=== PATIENT | female | born 1955 | race Caucasian/White ===

== ENCOUNTER 2018-08-19 07:00 | Inpatient (IN) ==
[2018-08-19 10:33] LABS: Basophils % 0.5 % (0.0-0.8); Eosinophils # 0.4 10*3/uL (0.0-0.87); Eosinophils % 5.6 % (0.00-10.9); Hematocrit 39.6 VOL% (35.7-47.0); Hemoglobin 12.4 GM/DL (12.0-16.0); Immature Granulocytes % 0.5 %; Immature Granulocytes Absolute 0.04 #; Lymphocytes # 1.7 10*3/uL (1.4-4.0); Lymphocytes % 22.7 % (21.3-54.2); Mean Corpuscular HGB Conc 31.3 GM/DL (32-36); Mean Corpuscular Volume 83.9 FL (87-102); Mean Platelet Volume 10.6 FL (9.6-12.0); Monocytes % 9.5 % (1.7-12.7); Neutrophils % 61.2 % (38.7-73.9); Platelet Count 255 T/CUMM (130-400); Red Blood Count 4.72 MC/CUMM (3.8-5.5); Red Cell Distribution Width 15.1 % (9.3-17.3); White Blood Count 7.3 T/CUMM (4-12)
[2018-08-19 11:29] LABS: Albumin 3.1 G/DL (3.4-5.0); Bilirubin,Total 0.4 MG/DL (0.2-1.0); Calcium 8.9 MG/DL (8.5-10.1); Osmolality,Calculated 288.4 MOS/KG (273-304); Total Protein 7.1 G/DL (6.4-8.3)
[2018-08-19] MEDS: ONDANSETRON 4 MG/2 ML VIAL IV PRN ×2 (17:53→22:38)
[2018-08-19] MEDS ORDERED: ZALEPLON 5 MG CAPSULE PO PRN (21:46)
[2018-08-19] MEDS: CHLORHEXIDINE 0.12% ORAL RINSE 60 ML BOTTLE SWISH/SPIT SCH (22:39)
[2018-08-20] MEDS: CHLORHEXIDINE 4% SOLN 118 ML BOTTLE TOP SCH ×2 (02:38→08:26)
[2018-08-20] MEDS ORDERED: PAPAVERINE 60 MG/2 ML VIAL ONE (04:20)
[2018-08-20] MEDS ORDERED: TISSUE ADHESIVE 1 EACH APPLICATOR TOP ONE (04:20)
[2018-08-20] MEDS ORDERED: VANCOMYCIN 1,000 MG VIAL ONE (04:21)
[2018-08-20] MEDS ORDERED: DIAZEPAM 5 MG TABLET PO ONE (06:00)
[2018-08-20] MEDS ORDERED: FAMOTIDINE 20 MG TABLET PO ONE (06:00)
[2018-08-20] MEDS ORDERED: FAMOTIDINE 20 MG/2 ML VIAL IV ONE (06:10)
[2018-08-20] MEDS ORDERED: CEFUROXIME INJ 1,500 MG in SYRINGE 1 EACH IV ONE (06:30)
[2018-08-20 07:49] LABS: ABG Base Excess -0.1 MMOL/L (-2.5-2.5); ABG HCO3 24.4 MMOL/L (20-26); ABG PCO2 36.5 MM HG (35-48); ABG PH 7.426 (7.35-7.45); ABG TCO2 21.6 MMOL/L (23-27); Glucose Heart Surgery 275 MG/DL (74-106); Hematocrit Heart Surgery 32.6 PERCENT (37-47); Hemoglobin Heart Surgery 10.5 G/DL (12.0-16.0); Ionized Calcium Arterial 1.16 MMOL/L (1.21-1.46); PCO2 Patient Temp Arterial 36.5 MMHG; PH Patient Temp Arterial 7.426; Patient Temperature 37 CELCIUS; Potassium Heart/CVR 3.8 MMOL/L (3.5-5.1); Sodium Heart/CVR 137 MMOL/L (135-145)
[2018-08-20] MEDS ORDERED: NITROPRUSSIDE 50 MG/2 ML VIAL ONE ×2 (07:50→11:44)
[2018-08-20] MEDS ORDERED: PHENYLEPHRINE DRIP 40 MG/250 ML PREMIX IV ONE (07:51)
[2018-08-20] MEDS ORDERED: ATROPINE 1 MG/10 ML SYRINGE ONE (07:51)
[2018-08-20 07:54] LABS: Apearance,Urine CLEAR (Clear); Bacteria,Urine Occasional /HPF (Few); Bilirubin,Urine Negative (Negative); Blood, Urine Negative (Negative); Glucose,Urine (UA) 50 mg/dL (Negative); Ketones,Urine Negative (Negative); Mucus,Urine Occasional /LPF (Occasional); Nitrite,Urine Negative (Negative); Protein,Urine 100 MG/DL; RBC,Urine <1 /HPF (0-4); Urine Color Straw (Yellow); Urine Specific Gravity 1.009 (1.001-1.035); Urine Urobilinogen < 2.0 EU/DL (0.2-1.0)
[2018-08-20] MEDS ORDERED: EPINEPHrine 1 MG/10 ML SYRINGE ONE ×2 (08:05→08:34)
[2018-08-20] MEDS: CHLORHEXIDINE 0.12% ORAL RINSE 60 ML BOTTLE SWISH/SPIT SCH ×2 (08:26→20:32)
[2018-08-20] MEDS: SODIUM CHLORIDE 0.9% 1,000 ML IV SCH ×2 (08:26→09:04)
[2018-08-20] MEDS ORDERED: POTASSIUM CHLORIDE RIDER 100 ML IV ONE (09:06)
[2018-08-20 09:07] LABS: Hematocrit Heart Surgery 22.5 PERCENT (37-47); Hemoglobin Heart Surgery 7.2 G/DL (12.0-16.0); PCO2 Patient Temp Venous 33.1 MM HG; PH Patient Temp Venous 7.465; PO2 Patient Temp Venous 36.3 MM HG; Potassium Heart/CVR 4.5 MMOL/L (3.5-5.1); VBG Base Excess 0.4 MEQ/L (0-4); VBG HCO3 24.6 MEQ/L (24-28); VBG Oxygen Saturation 78.6 %; VBG PCO2 36.5 MMHG (41-51); VBG PH 7.435; VBG PO2 41.8 MMHG (17-40)
[2018-08-20] MEDS ORDERED: INSULIN REGULAR 100 UNIT/ML ONE (09:13)
[2018-08-20 09:39] LABS: Hematocrit Heart Surgery 22.9 PERCENT (37-47); Hemoglobin Heart Surgery 7.3 G/DL (12.0-16.0); PCO2 Patient Temp Venous 27.7 MM HG; PH Patient Temp Venous 7.495; PO2 Patient Temp Venous 32.5 MM HG; Potassium Heart/CVR 3.4 MMOL/L (3.5-5.1); VBG Base Excess -1.3 MEQ/L (0-4); VBG HCO3 23.1 MEQ/L (24-28); VBG Oxygen Saturation 80.2 %; VBG PCO2 33.6 MMHG (41-51); VBG PH 7.435; VBG PO2 42.8 MMHG (17-40)
[2018-08-20 10:12] LABS: Hemoglobin Heart Surgery 8.5 G/DL (12.0-16.0); PCO2 Patient Temp Venous 38.4 MM HG; PH Patient Temp Venous 7.375; PO2 Patient Temp Venous 43.2 MM HG; Potassium Heart/CVR 4.4 MMOL/L (3.5-5.1); VBG Base Excess -2.9 MEQ/L (0-4); VBG Oxygen Saturation 74.5 %; VBG PCO2 38.4 MMHG (41-51); VBG PH 7.375; VBG PO2 43.2 MMHG (17-40)
[2018-08-20] MEDS ORDERED: MANNITOL 100 GM/500 ML BAG IV ONE (10:45)
[2018-08-20] MEDS ORDERED: HEPARIN 10,000 UNIT/10 ML VIAL ONE (10:46)
[2018-08-20] MEDS ORDERED: MAGNESIUM SULFATE 5 GM/10 ML VIAL IV ONE (10:46)
[2018-08-20] MEDS ORDERED: FUROSEMIDE 20 MG/2 ML VIAL ONE (10:46)
[2018-08-20] MEDS ORDERED: PROTAMINE SULFATE 250 MG/25 ML VIAL IV ONE (10:46)
[2018-08-20] MEDS ORDERED: SODIUM BICARBONATE 50 MEQ/50 ML VIAL IV ONE (10:46)
[2018-08-20] MEDS ORDERED: ALBUMIN 25% 25 GM/100 ML VIAL IV ONE (10:46)
[2018-08-20] MEDS ORDERED: ALBUMIN 5% 12.5 GM/250 ML VIAL IV ONE ×2 (10:46→10:50)
[2018-08-20] MEDS ORDERED: DEXTROSE 5% KCL 20 MEQ 20 MEQ/1,000 ML BAG IV ONE (10:46)
[2018-08-20] MEDS ORDERED: PROTAMINE SULFATE 50 MG/5 ML VIAL IV ONE (10:47)
[2018-08-20] MEDS ORDERED: POTASSIUM CHLORIDE 20 MEQ/10 ML VIAL ONE (10:47)
[2018-08-20 10:48] LABS: ABG Base Excess -7.5 MMOL/L (-2.5-2.5); ABG HCO3 18.2 MMOL/L (20-26); ABG PCO2 29.5 MM HG (35-48); ABG TCO2 16.4 MMOL/L (23-27); Glucose Heart Surgery 187 MG/DL (74-106); Hematocrit Heart Surgery 18.7 PERCENT (37-47); Ionized Calcium Arterial 0.94 MMOL/L (1.21-1.46); PCO2 Patient Temp Arterial 29.5 MMHG; Patient Temperature 37 CELCIUS; Potassium Heart/CVR 3.8 MMOL/L (3.5-5.1); Sodium Heart/CVR 136 MMOL/L (135-145)
[2018-08-20 10:51] LABS: Hemoglobin Heart Surgery 5.9 G/DL (12.0-16.0)
[2018-08-20 10:59] LABS: ABG Base Excess -3.8 MMOL/L (-2.5-2.5); ABG HCO3 21.2 MMOL/L (20-26); ABG PCO2 37.8 MM HG (35-48); ABG PH 7.358 (7.35-7.45); Glucose Heart Surgery 229 MG/DL (74-106); Hematocrit Heart Surgery 23.8 PERCENT (37-47); Hemoglobin Heart Surgery 7.6 G/DL (12.0-16.0); Ionized Calcium Arterial 1.18 MMOL/L (1.21-1.46); PCO2 Patient Temp Arterial 37.8 MMHG; PH Patient Temp Arterial 7.358; Patient Temperature 37 CELCIUS; Potassium Heart/CVR 3.8 MMOL/L (3.5-5.1); Sodium Heart/CVR 137 MMOL/L (135-145)
[2018-08-20] MEDS ORDERED: SUFentanil 50 MCG/ML AMP ONE (11:23)
[2018-08-20] MEDS ORDERED: MIDAZOLAM 2 MG/2 ML VIAL ONE (11:23)
[2018-08-20] MEDS: SODIUM CHLORIDE 0.45% 1,000 ML IV SCH ×2 (11:34)
[2018-08-20] MEDS ORDERED: CALCIUM CHLORIDE 1,000 MG/10 ML SYRINGE IV PRN (11:36)
[2018-08-20] MEDS ORDERED: SODIUM CHLORIDE 0.9% 250 ML IV PRN (11:36)
[2018-08-20] MEDS ORDERED: CHLORHEXIDINE 4% SOLN 118 ML BOTTLE TOP PRN (11:36)
[2018-08-20] MEDS ORDERED: MAGNESIUM SULF RIDER 4 GM in PREMIX 1 EACH IV PRN (11:36)
[2018-08-20] MEDS ORDERED: ACETAMINOPHEN 650 MG SUPP RECTAL PRN (11:36)
[2018-08-20] MEDS ORDERED: MIDAZOLAM 2 MG/2 ML VIAL IV PRN (11:36)
[2018-08-20] MEDS ORDERED: DEXTROSE 50% 25 GM/50 ML SYRINGE IV PRN ×2 (11:36)
[2018-08-20] MEDS ORDERED: MORPHINE 10 MG/1 ML VIAL IV PRN (11:36)
[2018-08-20] MEDS: NITROPRUSSIDE 100 MG in DEXTROSE 5% 246 ML IV PRN (11:38)
[2018-08-20] MEDS ORDERED: INSULIN REGULAR DRIP 100 ML IV SCH (12:00)
[2018-08-20] MEDS ORDERED: NITROGLYCERIN DRIP 50 MG/250 ML BOTTLE IV ONE ×2 (12:01→12:36)
[2018-08-20 12:31] LABS: Basophils % 0.4 % (0.0-0.8); Eosinophils # 0.1 10*3/uL (0.0-0.87); Eosinophils % 1.3 % (0.00-10.9); Hematocrit 35.3 VOL% (35.7-47.0); Hemoglobin 11.4 GM/DL (12.0-16.0); Immature Granulocytes % 0.7 %; Immature Granulocytes Absolute 0.07 #; Lymphocytes # 1.2 10*3/uL (1.4-4.0); Lymphocytes % 11.7 % (21.3-54.2); Mean Corpuscular HGB Conc 32.3 GM/DL (32-36); Mean Corpuscular Volume 83.5 FL (87-102); Mean Platelet Volume 10.8 FL (9.6-12.0); Monocytes % 8.3 % (1.7-12.7); Neutrophils % 77.6 % (38.7-73.9); Platelet Count 175 T/CUMM (130-400); Red Blood Count 4.23 MC/CUMM (3.8-5.5); Red Cell Distribution Width 14.4 % (9.3-17.3); White Blood Count 10.1 T/CUMM (4-12)
[2018-08-20 12:34] LABS: ABG Base Excess -3.8 MMOL/L (-2.5-2.5); ABG Oxygen Saturation 98.6 % (95-100); ABG PCO2 28.2 MM HG (35-48); ABG PH 7.447 (7.35-7.45); ABG PO2 156.7 MM HG (80-95); ABG TCO2 19.9 MMOL/L (23-27); Glucose Heart Surgery 211 MG/DL (74-106); Hemoglobin Heart Surgery 12.1 G/DL (12.0-16.0); Potassium Heart/CVR 3.8 MMOL/L (3.5-5.1)
[2018-08-20] MEDS ORDERED: MIDAZOLAM 10 MG/2 ML VIAL ONE (12:35)
[2018-08-20] MEDS ORDERED: SUFentanil 250 MCG/5 ML AMP ONE (12:35)
[2018-08-20] MEDS ORDERED: CALCIUM CHLORIDE 1,000 MG/10 ML VIAL IV ONE (12:35)
[2018-08-20] MEDS ORDERED: HEPARIN/NACL 0.9% 2 UNITS/ML 500 ML IV ONE (12:35)
[2018-08-20] MEDS ORDERED: SEVOFLURANE 1 UNIT/15 MINUTE INH ONE (12:35)
[2018-08-20] MEDS ORDERED: PHENYLEPHRINE DRIP 20 MG/250 ML PREMIX IV ONE (12:35)
[2018-08-20] MEDS ORDERED: LACTATED RINGERS 1,000 ML IV ONE (12:36)
[2018-08-20] MEDS ORDERED: AMINOCAPROIC ACID 5,000 MG/20 ML VIAL ONE (12:36)
[2018-08-20] MEDS ORDERED: ETOMIDATE 40 MG/20 ML VIAL IV ONE (12:36)
[2018-08-20] MEDS ORDERED: VECURONIUM 10 MG VIAL IV ONE (12:36)
[2018-08-20] MEDS ORDERED: SODIUM CHLORIDE 0.9% 2,000 ML IV ONE (12:36)
[2018-08-20] MEDS ORDERED: SODIUM CHLORIDE 0.9% 250 ML IV ONE (12:36)
[2018-08-20 12:39] LABS: PT Patient Result 10.8 SECS; Partial Thromboplastin Time 28.1 SECS (0-40)
[2018-08-20 12:46] LABS: Blood Urea Nitrogen 18 MG/DL (7-18); Calcium 8.3 MG/DL (8.5-10.1); Glucose 225 MG/DL (74-106); Osmolality,Calculated 287.4 MOS/KG (273-304)
[2018-08-20] MEDS ORDERED: ASPIRIN 325 MG TABLET NG ONE (12:51)
[2018-08-20] MEDS: ALBUMIN 5% 12.5 GM in PREMIX 1 EACH IV PRN ×4 (12:51→16:39)
[2018-08-20] MEDS: POTASSIUM CHLORIDE RIDER 20 MEQ in PREMIX 1 EACH IV PRN ×2 (13:21→20:39)
[2018-08-20] MEDS ORDERED: LACTATED RINGERS 500 ML IV ONE ×2 (13:39→18:48)
[2018-08-20] MEDS: POTASSIUM CHLORIDE RIDER 10 MEQ in PREMIX 1 EACH IV PRN ×2 (13:59→20:09)
[2018-08-20] MEDS: MAGNESIUM SULF RIDER 2 GM in PREMIX 1 EACH IV PRN (15:27)
[2018-08-20] MEDS ORDERED: LACTATED RINGERS 250 ML IV ONE (16:23)
[2018-08-20] MEDS: INSULIN REGULAR 100 UNIT/ML IV PRN (17:04)
[2018-08-20] MEDS: CEFUROXIME INJ 1,500 MG in SYRINGE 1 EACH IV SCH (18:51)
[2018-08-20 18:57] LABS: ABG Base Excess -1.2 MMOL/L (-2.5-2.5); ABG HCO3 23.5 MMOL/L (20-26); ABG Oxygen Saturation 99.6 % (95-100); ABG PCO2 34.4 MM HG (35-48); ABG PH 7.427 (7.35-7.45); ABG TCO2 20.4 MMOL/L (23-27); Glucose Heart Surgery 144 MG/DL (74-106); Hematocrit Heart Surgery 32.3 PERCENT (37-47); Hemoglobin Heart Surgery 10.4 G/DL (12.0-16.0); Potassium Heart/CVR 3.6 MMOL/L (3.5-5.1)
[2018-08-20] MEDS: MORPHINE 4 MG/1 ML VIAL IV PRN (19:12)
[2018-08-21] MEDS: ONDANSETRON 4 MG/2 ML VIAL IV PRN (03:20)
[2018-08-21] MEDS: MORPHINE 4 MG/1 ML VIAL IV PRN ×5 (03:27→16:23)
[2018-08-21] MEDS: SODIUM CHLORIDE 0.45% 1,000 ML IV SCH ×2 (03:39→08:14)
[2018-08-21 04:23] LABS: Basophils % 0.3 % (0.0-0.8); Hematocrit 31.1 VOL% (35.7-47.0); Immature Granulocytes % 0.6 %; Immature Granulocytes Absolute 0.09 #; Lymphocytes # 1.1 10*3/uL (1.4-4.0); Lymphocytes % 6.6 % (21.3-54.2); Mean Corpuscular HGB Conc 32.2 GM/DL (32-36); Mean Corpuscular Volume 84.1 FL (87-102); Mean Platelet Volume 11.1 FL (9.6-12.0); Monocytes % 8.3 % (1.7-12.7); Neutrophils % 84.2 % (38.7-73.9); Platelet Count 186 T/CUMM (130-400)
[2018-08-21 04:33] LABS: Calcium 8.4 MG/DL (8.5-10.1); Osmolality,Calculated 281.7 MOS/KG (273-304)
[2018-08-21 05:03] LABS: ABG Base Excess -3.2 MMOL/L (-2.5-2.5); ABG HCO3 21.8 MMOL/L (20-26); ABG Oxygen Saturation 99.3 % (95-100); ABG PH 7.381 (7.35-7.45); ABG TCO2 19.3 MMOL/L (23-27); Glucose Heart Surgery 198 MG/DL (74-106); Hematocrit Heart Surgery 32.9 PERCENT (37-47); Hemoglobin Heart Surgery 10.6 G/DL (12.0-16.0); Potassium Heart/CVR 4.2 MMOL/L (3.5-5.1)
[2018-08-21] MEDS: INSULIN REGULAR 100 UNIT/ML IV PRN (05:06)
[2018-08-21] MEDS: CEFUROXIME INJ 1,500 MG in SYRINGE 1 EACH IV SCH ×2 (06:37→18:40)
[2018-08-21] MEDS: PROMETHAZINE 25 MG/1 ML VIAL IM PRN (06:50)
[2018-08-21] MEDS: MAGNESIUM SULF RIDER 2 GM in PREMIX 1 EACH IV PRN (07:08)
[2018-08-21] MEDS: CHLORHEXIDINE 0.12% ORAL RINSE 60 ML BOTTLE SWISH/SPIT SCH ×2 (08:06→20:17)
[2018-08-21] MEDS: PANTOPRAZOLE 40 MG VIAL IV SCH (08:06)
[2018-08-21] MEDS ORDERED: FUROSEMIDE 40 MG/4 ML VIAL IV ONE (09:29)
[2018-08-21] MEDS: INSULIN REGULAR 100 UNIT/ML SUBCUT SCH ×5 (09:53→23:51)
[2018-08-21] MEDS: CLOPIDOGREL 75 MG TABLET PO SCH (09:56)
[2018-08-21] MEDS ORDERED: INSULIN REGULAR 100 UNIT/ML SUBCUT SCH (10:00)
[2018-08-21] MEDS: ATORVASTATIN 40 MG TABLET PO SCH ×2 (11:22→20:17)
[2018-08-21] MEDS: FUROSEMIDE 40 MG TABLET PO SCH (11:25)
[2018-08-21] MEDS: CARVEDILOL 3.125 MG TABLET PO SCH ×2 (11:25→16:23)
[2018-08-21] MEDS: ASPIRIN EC 325 MG TABLET PO SCH (11:25)
[2018-08-21] MEDS ORDERED: NITROPRUSSIDE 50 MG/2 ML VIAL ONE (12:18)
[2018-08-21] MEDS: NITROPRUSSIDE 100 MG in DEXTROSE 5% 246 ML IV PRN (12:23)
[2018-08-21] MEDS: GABAPENTIN 600 MG TABLET PO SCH ×2 (16:23→20:17)
[2018-08-21] MEDS ORDERED: KETOROLAC 15 MG/1 ML VIAL IV ONE (17:27)
[2018-08-21] MEDS ORDERED: HEPARIN/NACL 0.9% 2 UNITS/ML 500 ML IV ONE (21:23)
[2018-08-22] MEDS: INSULIN REGULAR 100 UNIT/ML SUBCUT SCH ×6 (04:06→23:30)
[2018-08-22] MEDS: MORPHINE 4 MG/1 ML VIAL IV PRN (04:14)
[2018-08-22 04:24] LABS: Basophils % 0.3 % (0.0-0.8); Eosinophils # 0.1 10*3/uL (0.0-0.87); Eosinophils % 0.5 % (0.00-10.9); Hematocrit 32.3 VOL% (35.7-47.0); Hemoglobin 10.2 GM/DL (12.0-16.0); Immature Granulocytes % 0.5 %; Immature Granulocytes Absolute 0.05 #; Lymphocytes # 2.4 10*3/uL (1.4-4.0); Lymphocytes % 22.6 % (21.3-54.2); Mean Corpuscular HGB Conc 31.6 GM/DL (32-36); Mean Corpuscular Volume 85.9 FL (87-102); Mean Platelet Volume 11.2 FL (9.6-12.0); Monocytes % 10.3 % (1.7-12.7); Neutrophils % 65.8 % (38.7-73.9); Platelet Count 186 T/CUMM (130-400); Red Blood Count 3.76 MC/CUMM (3.8-5.5); Red Cell Distribution Width 15.5 % (9.3-17.3); White Blood Count 10.6 T/CUMM (4-12)
[2018-08-22 04:41] LABS: Calcium 8.3 MG/DL (8.5-10.1); Osmolality,Calculated 283.4 MOS/KG (273-304)
[2018-08-22 04:44] LABS: Risk Ratio 3.78
[2018-08-22] MEDS: POTASSIUM CHLORIDE RIDER 20 MEQ in PREMIX 1 EACH IV PRN (06:12)
[2018-08-22] MEDS: MAGNESIUM SULF RIDER 2 GM in PREMIX 1 EACH IV PRN (06:12)
[2018-08-22] MEDS: POTASSIUM CHLORIDE RIDER 10 MEQ in PREMIX 1 EACH IV PRN (07:21)
[2018-08-22] MEDS: CLOPIDOGREL 75 MG TABLET PO SCH (08:55)
[2018-08-22] MEDS: LOSARTAN 25 MG TABLET PO SCH (08:55)
[2018-08-22] MEDS: CARVEDILOL 3.125 MG TABLET PO SCH ×2 (08:55→16:55)
[2018-08-22] MEDS: FUROSEMIDE 40 MG TABLET PO SCH (08:56)
[2018-08-22] MEDS: CHLORHEXIDINE 0.12% ORAL RINSE 60 ML BOTTLE SWISH/SPIT SCH ×2 (08:56→20:05)
[2018-08-22] MEDS: GABAPENTIN 600 MG TABLET PO SCH (08:56)
[2018-08-22] MEDS: ASPIRIN EC 325 MG TABLET PO SCH (08:56)
[2018-08-22] MEDS: PANTOPRAZOLE 40 MG VIAL IV SCH (08:56)
[2018-08-22] MEDS: ATORVASTATIN 40 MG TABLET PO SCH (20:04)
[2018-08-23] MEDS: INSULIN REGULAR 100 UNIT/ML SUBCUT SCH ×5 (03:36→20:37)
[2018-08-23 04:30] LABS: Basophils % 0.3 % (0.0-0.8); Eosinophils # 0.3 10*3/uL (0.0-0.87); Eosinophils % 2.7 % (0.00-10.9); Hematocrit 29.9 VOL% (35.7-47.0); Hemoglobin 9.4 GM/DL (12.0-16.0); Immature Granulocytes % 0.4 %; Immature Granulocytes Absolute 0.05 #; Lymphocytes # 2.2 10*3/uL (1.4-4.0); Lymphocytes % 19.8 % (21.3-54.2); Mean Corpuscular HGB Conc 31.4 GM/DL (32-36); Mean Corpuscular Volume 86.4 FL (87-102); Mean Platelet Volume 11.5 FL (9.6-12.0); Monocytes % 15.4 % (1.7-12.7); Neutrophils % 61.4 % (38.7-73.9); Platelet Count 175 T/CUMM (130-400); Red Blood Count 3.46 MC/CUMM (3.8-5.5); Red Cell Distribution Width 15.4 % (9.3-17.3); White Blood Count 11.2 T/CUMM (4-12)
[2018-08-23 04:48] LABS: Calcium 8.2 MG/DL (8.5-10.1); Osmolality,Calculated 285.4 MOS/KG (273-304)
[2018-08-23] MEDS: MAGNESIUM SULF RIDER 2 GM in PREMIX 1 EACH IV PRN (05:50)
[2018-08-23] MEDS: POTASSIUM CHLORIDE RIDER 20 MEQ in PREMIX 1 EACH IV PRN (05:50)
[2018-08-23] MEDS: POTASSIUM CHLORIDE RIDER 10 MEQ in PREMIX 1 EACH IV PRN (06:54)
[2018-08-23] MEDS: CLOPIDOGREL 75 MG TABLET PO SCH (08:37)
[2018-08-23] MEDS: LOSARTAN 25 MG TABLET PO SCH (08:37)
[2018-08-23] MEDS: CARVEDILOL 3.125 MG TABLET PO SCH ×2 (08:38→17:43)
[2018-08-23] MEDS: PANTOPRAZOLE 40 MG VIAL IV SCH (08:38)
[2018-08-23] MEDS: ASPIRIN EC 325 MG TABLET PO SCH (08:38)
[2018-08-23] MEDS: FUROSEMIDE 40 MG TABLET PO SCH (08:38)
[2018-08-23] MEDS: CHLORHEXIDINE 0.12% ORAL RINSE 60 ML BOTTLE SWISH/SPIT SCH ×2 (08:39→20:38)
[2018-08-23] MEDS ORDERED: GABAPENTIN 100 MG CAPSULE PO SCH (09:00)
[2018-08-23] MEDS: ATORVASTATIN 40 MG TABLET PO SCH (20:37)
[2018-08-24] MEDS: INSULIN REGULAR 100 UNIT/ML SUBCUT SCH ×6 (01:58→21:13)
[2018-08-24 05:28] LABS: Basophils % 0.4 % (0.0-0.8); Eosinophils # 0.5 10*3/uL (0.0-0.87); Eosinophils % 4.5 % (0.00-10.9); Hematocrit 30.3 VOL% (35.7-47.0); Hemoglobin 9.6 GM/DL (12.0-16.0); Immature Granulocytes % 0.6 %; Immature Granulocytes Absolute 0.07 #; Lymphocytes # 2.6 10*3/uL (1.4-4.0); Lymphocytes % 23.6 % (21.3-54.2); Mean Corpuscular HGB Conc 31.7 GM/DL (32-36); Mean Corpuscular Volume 85.4 FL (87-102); Mean Platelet Volume 11.2 FL (9.6-12.0); Monocytes % 15.9 % (1.7-12.7); Platelet Count 205 T/CUMM (130-400); Red Blood Count 3.55 MC/CUMM (3.8-5.5); Red Cell Distribution Width 14.6 % (9.3-17.3); White Blood Count 10.9 T/CUMM (4-12)
[2018-08-24 05:57] LABS: Calcium 8.5 MG/DL (8.5-10.1); Osmolality,Calculated 284.3 MOS/KG (273-304)
[2018-08-24 06:05] LABS: Anisocytosis 1+; Eosinophils 1 % (0-10); Hypochromasia 1+; Lymphocytes 22 % (20-55); Platelet Estimate Adequate; Segmented Neutrophils 57 % (50-85); Total Cells Counted 100
[2018-08-24] MEDS: PANTOPRAZOLE 40 MG VIAL IV SCH (08:57)
[2018-08-24] MEDS: POTASSIUM CHLORIDE RIDER 10 MEQ in PREMIX 1 EACH IV PRN ×3 (09:00→12:08)
[2018-08-24] MEDS: ASPIRIN EC 325 MG TABLET PO SCH (09:01)
[2018-08-24] MEDS: LOSARTAN 25 MG TABLET PO SCH (09:01)
[2018-08-24] MEDS: FUROSEMIDE 40 MG TABLET PO SCH (09:01)
[2018-08-24] MEDS: CLOPIDOGREL 75 MG TABLET PO SCH (09:01)
[2018-08-24] MEDS: CARVEDILOL 6.25 MG TABLET PO SCH ×2 (09:01→21:11)
[2018-08-24] MEDS: CHLORHEXIDINE 0.12% ORAL RINSE 60 ML BOTTLE SWISH/SPIT SCH ×2 (09:02→21:12)
[2018-08-24] MEDS: MORPHINE 4 MG/1 ML VIAL IV PRN ×3 (12:52→23:26)
[2018-08-24] MEDS: ONDANSETRON 4 MG/2 ML VIAL IV PRN ×2 (12:52)
[2018-08-24] MEDS: POLYETHYLENE GLYCOL POWDER 17 GM PACK PO PRN (12:54)
[2018-08-24] MEDS: ATORVASTATIN 40 MG TABLET PO SCH (21:11)
[2018-08-25] MEDS: INSULIN REGULAR 100 UNIT/ML SUBCUT SCH ×6 (02:00→20:42)
[2018-08-25] MEDS: MORPHINE 4 MG/1 ML VIAL IV PRN (05:37)
[2018-08-25 05:58] LABS: Basophils # 0.1 10*3/uL (0.0-0.2); Basophils % 0.5 % (0.0-0.8); Eosinophils # 0.5 10*3/uL (0.0-0.87); Hematocrit 31.1 VOL% (35.7-47.0); Hemoglobin 9.9 GM/DL (12.0-16.0); Immature Granulocytes % 0.8 %; Immature Granulocytes Absolute 0.08 #; Lymphocytes # 2.9 10*3/uL (1.4-4.0); Lymphocytes % 27.7 % (21.3-54.2); Mean Corpuscular HGB Conc 31.8 GM/DL (32-36); Mean Corpuscular Volume 85.2 FL (87-102); Mean Platelet Volume 10.5 FL (9.6-12.0); Monocytes % 13.6 % (1.7-12.7); Neutrophils % 52.4 % (38.7-73.9); Platelet Count 303 T/CUMM (130-400); Red Blood Count 3.65 MC/CUMM (3.8-5.5); Red Cell Distribution Width 14.4 % (9.3-17.3); White Blood Count 10.6 T/CUMM (4-12)
[2018-08-25 06:14] LABS: Calcium 8.5 MG/DL (8.5-10.1); Osmolality,Calculated 281.7 MOS/KG (273-304)
[2018-08-25] MEDS: ONDANSETRON 4 MG/2 ML VIAL IV PRN ×2 (08:46→17:47)
[2018-08-25] MEDS: LOSARTAN 25 MG TABLET PO SCH ×2 (08:51→20:43)
[2018-08-25] MEDS: FUROSEMIDE 40 MG TABLET PO SCH (08:51)
[2018-08-25] MEDS: CLOPIDOGREL 75 MG TABLET PO SCH (08:51)
[2018-08-25] MEDS: ASPIRIN EC 325 MG TABLET PO SCH (08:51)
[2018-08-25] MEDS: CARVEDILOL 6.25 MG TABLET PO SCH ×2 (08:51→20:43)
[2018-08-25] MEDS: CHLORHEXIDINE 0.12% ORAL RINSE 60 ML BOTTLE SWISH/SPIT SCH ×2 (08:52→20:43)
[2018-08-25] MEDS: POLYETHYLENE GLYCOL POWDER 17 GM PACK PO PRN (08:53)
[2018-08-25] MEDS: PANTOPRAZOLE 40 MG VIAL IV SCH (08:53)
[2018-08-25] MEDS: PROMETHAZINE 25 MG/1 ML VIAL IM PRN (20:43)
[2018-08-25] MEDS: ATORVASTATIN 40 MG TABLET PO SCH (20:43)
[2018-08-26] MEDS: INSULIN REGULAR 100 UNIT/ML SUBCUT SCH ×4 (08:52→21:56)
[2018-08-26] MEDS: ASPIRIN EC 325 MG TABLET PO SCH (08:52)
[2018-08-26] MEDS: CARVEDILOL 6.25 MG TABLET PO SCH ×2 (08:52→21:28)
[2018-08-26] MEDS: CLOPIDOGREL 75 MG TABLET PO SCH (08:52)
[2018-08-26] MEDS: CHLORHEXIDINE 0.12% ORAL RINSE 60 ML BOTTLE SWISH/SPIT SCH ×2 (08:53→21:29)
[2018-08-26] MEDS: FUROSEMIDE 40 MG TABLET PO SCH (08:53)
[2018-08-26] MEDS: LOSARTAN 50 MG TABLET PO SCH ×2 (08:55→21:28)
[2018-08-26] MEDS: PANTOPRAZOLE 40 MG VIAL IV SCH (08:58)
[2018-08-26] MEDS: ATORVASTATIN 40 MG TABLET PO SCH (21:29)
[2018-08-27] MEDS ORDERED: HYDROmorphone 2 MG/1 ML VIAL IV PRN (04:31)
[2018-08-27] MEDS ORDERED: hydrALAZINE 20 MG/1 ML VIAL IV PRN (04:31)
[2018-08-27] MEDS ORDERED: SODIUM PHOSPHATE ENEMA 133 ML BOTTLE RECTAL PRN (08:07)
[2018-08-27] MEDS: INSULIN REGULAR 100 UNIT/ML SUBCUT SCH ×4 (08:38→20:48)
[2018-08-27] MEDS: CLOPIDOGREL 75 MG TABLET PO SCH (08:39)
[2018-08-27] MEDS: ASPIRIN EC 325 MG TABLET PO SCH (08:39)
[2018-08-27] MEDS: PANTOPRAZOLE 40 MG VIAL IV SCH (08:39)
[2018-08-27] MEDS: LOSARTAN 50 MG TABLET PO SCH ×2 (08:39→20:48)
[2018-08-27] MEDS: CARVEDILOL 12.5 MG TABLET PO SCH ×2 (08:39→20:48)
[2018-08-27] MEDS: FUROSEMIDE 40 MG TABLET PO SCH (08:39)
[2018-08-27] MEDS: POLYETHYLENE GLYCOL POWDER 17 GM PACK PO PRN (08:40)
[2018-08-27] MEDS: LACTULOSE 20 GM/30 ML UDCUP PO PRN ×2 (08:42→14:02)
[2018-08-27] MEDS: CHLORHEXIDINE 0.12% ORAL RINSE 60 ML BOTTLE SWISH/SPIT SCH ×2 (09:15→20:49)
[2018-08-27] MEDS: ONDANSETRON 4 MG/2 ML VIAL IV PRN (20:47)
[2018-08-27] MEDS: INSULIN GLARGINE 100 UNIT/ML SUBCUT SCH (20:47)
[2018-08-27] MEDS: ATORVASTATIN 40 MG TABLET PO SCH (20:48)
[2018-08-28 05:04] LABS: Basophils # 0.1 10*3/uL (0.0-0.2); Basophils % 0.5 % (0.0-0.8); Eosinophils # 0.7 10*3/uL (0.0-0.87); Eosinophils % 6.8 % (0.00-10.9); Hematocrit 29.4 VOL% (35.7-47.0); Hemoglobin 9.3 GM/DL (12.0-16.0); Immature Granulocytes % 0.9 %; Immature Granulocytes Absolute 0.09 #; Lymphocytes # 2.6 10*3/uL (1.4-4.0); Lymphocytes % 25.2 % (21.3-54.2); Mean Corpuscular HGB Conc 31.6 GM/DL (32-36); Mean Platelet Volume 10.4 FL (9.6-12.0); Monocytes % 11.7 % (1.7-12.7); Neutrophils % 54.9 % (38.7-73.9); Platelet Count 391 T/CUMM (130-400); Red Blood Count 3.46 MC/CUMM (3.8-5.5); Red Cell Distribution Width 14.6 % (9.3-17.3); White Blood Count 10.3 T/CUMM (4-12)
[2018-08-28 05:37] LABS: Calcium 8.6 MG/DL (8.5-10.1); Osmolality,Calculated 285.5 MOS/KG (273-304)
[2018-08-28] MEDS: INSULIN REGULAR 100 UNIT/ML SUBCUT SCH ×4 (08:53→21:05)
[2018-08-28] MEDS: LOSARTAN 50 MG TABLET PO SCH ×2 (08:55→21:03)
[2018-08-28] MEDS: FUROSEMIDE 40 MG TABLET PO SCH (08:55)
[2018-08-28] MEDS: CARVEDILOL 12.5 MG TABLET PO SCH ×2 (08:55→21:03)
[2018-08-28] MEDS: CLOPIDOGREL 75 MG TABLET PO SCH (08:55)
[2018-08-28] MEDS: PANTOPRAZOLE 40 MG VIAL IV SCH (08:56)
[2018-08-28] MEDS: ASPIRIN EC 325 MG TABLET PO SCH (08:56)
[2018-08-28] MEDS: CHLORHEXIDINE 0.12% ORAL RINSE 60 ML BOTTLE SWISH/SPIT SCH ×2 (08:56→21:03)
[2018-08-28] MEDS: POLYETHYLENE GLYCOL POWDER 17 GM PACK PO PRN (08:57)
[2018-08-28] MEDS: ATORVASTATIN 40 MG TABLET PO SCH (21:03)
[2018-08-28] MEDS: INSULIN GLARGINE 100 UNIT/ML SUBCUT SCH (21:04)
[2018-08-29] MEDS: ONDANSETRON 4 MG/2 ML VIAL IV PRN (01:42)
[2018-08-29 06:17] LABS: Basophils # 0.1 10*3/uL (0.0-0.2); Basophils % 0.5 % (0.0-0.8); Eosinophils # 0.7 10*3/uL (0.0-0.87); Eosinophils % 5.9 % (0.00-10.9); Hematocrit 29.8 VOL% (35.7-47.0); Hemoglobin 9.3 GM/DL (12.0-16.0); Immature Granulocytes % 0.7 %; Immature Granulocytes Absolute 0.08 #; Lymphocytes # 2.6 10*3/uL (1.4-4.0); Lymphocytes % 23.8 % (21.3-54.2); Mean Corpuscular HGB Conc 31.2 GM/DL (32-36); Mean Corpuscular Volume 84.9 FL (87-102); Mean Platelet Volume 10.4 FL (9.6-12.0); Monocytes % 13.2 % (1.7-12.7); Neutrophils % 55.9 % (38.7-73.9); Platelet Count 437 T/CUMM (130-400); Red Blood Count 3.51 MC/CUMM (3.8-5.5); Red Cell Distribution Width 14.6 % (9.3-17.3)
[2018-08-29 06:55] LABS: Calcium 8.7 MG/DL (8.5-10.1); Osmolality,Calculated 286.1 MOS/KG (273-304)
[2018-08-29] MEDS: INSULIN REGULAR 100 UNIT/ML SUBCUT SCH ×4 (08:03→20:22)
[2018-08-29] MEDS: CARVEDILOL 12.5 MG TABLET PO SCH ×2 (09:15→20:21)
[2018-08-29] MEDS: ASPIRIN EC 325 MG TABLET PO SCH (09:15)
[2018-08-29] MEDS: FUROSEMIDE 40 MG TABLET PO SCH (09:15)
[2018-08-29] MEDS: PANTOPRAZOLE 40 MG VIAL IV SCH (09:15)
[2018-08-29] MEDS: CHLORHEXIDINE 0.12% ORAL RINSE 60 ML BOTTLE SWISH/SPIT SCH ×2 (09:15→20:20)
[2018-08-29] MEDS: LOSARTAN 50 MG TABLET PO SCH ×2 (09:15→20:21)
[2018-08-29] MEDS: CLOPIDOGREL 75 MG TABLET PO SCH (09:15)
[2018-08-29] MEDS: POTASSIUM CHLORIDE 20 MEQ TABLET PO PRN ×2 (10:05→11:52)
[2018-08-29] MEDS: INSULIN GLARGINE 100 UNIT/ML SUBCUT SCH (20:21)
[2018-08-29] MEDS: ATORVASTATIN 40 MG TABLET PO SCH (20:21)
[2018-08-30 04:42] LABS: Osmolality,Calculated 286.3 MOS/KG (273-304)
[2018-08-30 04:43] LABS: Basophils # 0.1 10*3/uL (0.0-0.2); Basophils % 0.6 % (0.0-0.8); Eosinophils # 0.7 10*3/uL (0.0-0.87); Eosinophils % 6.9 % (0.00-10.9); Hematocrit 29.1 VOL% (35.7-47.0); Hemoglobin 9.1 GM/DL (12.0-16.0); Immature Granulocytes % 0.9 %; Immature Granulocytes Absolute 0.09 #; Lymphocytes # 2.7 10*3/uL (1.4-4.0); Lymphocytes % 26.8 % (21.3-54.2); Mean Corpuscular HGB Conc 31.3 GM/DL (32-36); Mean Corpuscular Volume 86.1 FL (87-102); Mean Platelet Volume 10.4 FL (9.6-12.0); Monocytes % 12.2 % (1.7-12.7); Neutrophils % 52.6 % (38.7-73.9); Platelet Count 421 T/CUMM (130-400); Red Blood Count 3.38 MC/CUMM (3.8-5.5); Red Cell Distribution Width 14.6 % (9.3-17.3); White Blood Count 9.9 T/CUMM (4-12)
[2018-08-30] MEDS: INSULIN REGULAR 100 UNIT/ML SUBCUT SCH ×2 (07:41→12:08)
[2018-08-30] MEDS: LOSARTAN 50 MG TABLET PO SCH (08:50)
[2018-08-30] MEDS: CARVEDILOL 12.5 MG TABLET PO SCH (08:50)
[2018-08-30] MEDS: ASPIRIN EC 325 MG TABLET PO SCH (08:50)
[2018-08-30] MEDS: CHLORHEXIDINE 0.12% ORAL RINSE 60 ML BOTTLE SWISH/SPIT SCH (08:50)
[2018-08-30] MEDS: PANTOPRAZOLE 40 MG VIAL IV SCH (08:51)
[2018-08-30] MEDS: FUROSEMIDE 40 MG TABLET PO SCH (08:51)
[2018-08-30] MEDS: CLOPIDOGREL 75 MG TABLET PO SCH (08:51)
[2018-08-30 12:18] VITALS: BP 138/75
== END 2018-08-30 12:37 | disposition swing bed (61) | DRG 236 ==
LOC: N.TELEN 10:07 → N.CVR 08-20 10:56 → N.ICU 08-21 12:48 → N.TELES 08-23 18:44
PROVIDERS: ADMIT Thoracic Surgery (Cardiothoracic Vascular Surgery); ATTEND Thoracic Surgery (Cardiothoracic Vascular Surgery)